=== PATIENT | female | born 1975 | race Caucasian/White ===

== ENCOUNTER → 2017-02-03 | Outpatient (CLI) | payer BC ==
[~2017-02-03] MED LIST: BUPR-86 PO; DEXL60CA PO; PHEN37.53 PO
== END ==
LOC: STAR 09:11
PROVIDERS: ATTEND Thoracic Surgery (Cardiothoracic Vascular Surgery)
DX: Z02.9 Encounter for administrative examinations, unspecified (principal)

== ENCOUNTER 2017-02-15 07:57 | Observation (INO) | payer BC ==
[~2017-02-15] VITALS: Ht 167.6 cm; Wt 80.2 kg
[~2017-02-15 07:57] MED LIST changes: +BUPIVACAINE/PF-EPI 0.5% 1:200K ONE
[2017-02-15] MEDS ORDERED: LACTATED RINGERS 1,000 ML IV SCH (08:46)
[2017-02-15 08:47] VITALS: BP 127/75
[2017-02-15 09:03] LABS: HCG UR OBC PASS
[2017-02-15] MEDS ORDERED: SCOPOLAMINE PATCH, 1.5MG PATCH.TD72 TD ONE (10:41)
[2017-02-15] MEDS ORDERED: HYDROmorphone 1 MG/ML, 1ML ONE ×2 (10:45→13:26)
[2017-02-15] MEDS ORDERED: FENTANYL PF 100 MCG/2ML ONE ×2 (10:45→12:15)
[2017-02-15] MEDS ORDERED: ONDANSETRON 2MG/ML, 2ML IVPush PRN ×2 (11:30→12:00)
[2017-02-15] MEDS ORDERED: hydrALAzine 20 MG/ML, 1ML IV PRN ×2 (11:30→12:00)
[2017-02-15] MEDS ORDERED: OXYcodone 5 MG/5 ML ORAL.SOL UDC PO PRN (11:30)
[2017-02-15] MEDS ORDERED: LABETALOL 5MG/ML, 20ML IV PRN (11:30)
[2017-02-15] MEDS ORDERED: PROMETHAZINE 25 MG/ML, 1ML IV PRN (11:30)
[2017-02-15] MEDS ORDERED: MIDAZOLAM 1 MG/ML, 2ML IV PRN (11:30)
[2017-02-15] MEDS ORDERED: MEPERIDINE/PF 25MG/0.5ML IVPush PRN (11:30)
[2017-02-15] MEDS ORDERED: DIPHENHYDRAMINE 50 MG/ML, 1ML IV PRN (12:00)
[2017-02-15] MEDS ORDERED: PROMETHAZINE 12.5 MG SUPP PR PRN (12:00)
[2017-02-15] MEDS ORDERED: ENALAPRILAT 1.25 MG/ML, 2ML IV PRN (12:00)
[2017-02-15] MEDS ORDERED: LORazepam 2 MG/ML, 1ML IV PRN (12:00)
[2017-02-15] MEDS ORDERED: HYDROcodone/APAP 7.5-325MG/15ML UDC ONE (12:15)
[2017-02-15] MEDS: HYDROcodone/APAP 7.5-325MG/15ML UDC PO PRN ×2 (12:17→21:14)
[2017-02-15] MEDS: FENTANYL PF 100 MCG/2ML IV PRN ×2 (12:19→12:45)
[2017-02-15] MEDS: HYDROmorphone 1 MG/ML, 1ML IV PRN ×2 (13:28→13:36)
[2017-02-15] MEDS: morphine SULFATE 10 MG/ML, 1ML IV PRN ×5 (14:04→23:48)
[2017-02-15] MEDS: LACTATED RINGERS 1,000 ML IV SCH ×2 (14:05→21:14)
[2017-02-15] MEDS: FAMOTIDINE 20 MG/2 ML IV SCH (14:38)
[2017-02-15 14:42] VITALS: BP 116/73
[2017-02-15] MEDS ORDERED: ONDANSETRON 2MG/ML, 2ML ONE (16:26)
[2017-02-15] MEDS ORDERED: SUCCINYLCHOLINE 20 MG/ML, 10ML ONE (16:26)
[2017-02-15] MEDS ORDERED: KETOROLAC 30 MG/1 ML ONE (16:26)
[2017-02-15] MEDS ORDERED: NEOSTIGMINE 1 MG/ML, 10ML ONE (16:26)
[2017-02-15] MEDS ORDERED: ROCURONIUM 10 MG/ML ONE (16:26)
[2017-02-15] MEDS ORDERED: DEXAMETHASONE 4 MG/ML, 1ML ONE (16:26)
[2017-02-15] MEDS ORDERED: PROPOFOL 10 MG/ML, 20ML ONE (16:26)
[2017-02-15] MEDS ORDERED: GLYCOPYRROLATE 0.2MG/1ML ONE (16:26)
[2017-02-15] MEDS ORDERED: CEFAZOLIN 1,000 MG ONE (16:26)
[2017-02-15] MEDS: KETOROLAC 30 MG/1 ML IV PRN ×2 (16:55→23:47)
[2017-02-15] MEDS: CEFAZOLIN PMX 2GM/50ML 50 ML IVPB SCH (17:35)
[2017-02-15 18:32] VITALS: BP 112/67
[2017-02-15] MEDS: PROMETHAZINE 25 MG/ML, 1ML IM PRN (18:38)
[2017-02-16 02:18] VITALS: BP 113/69
[2017-02-16] MEDS: FAMOTIDINE 20 MG/2 ML IV SCH (02:45)
[2017-02-16] MEDS: CEFAZOLIN PMX 2GM/50ML 50 ML IVPB SCH (02:46)
[2017-02-16] MEDS: HYDROcodone/APAP 7.5-325MG/15ML UDC PO PRN ×3 (02:46→10:24)
[2017-02-16] MEDS: PROMETHAZINE 25 MG/ML, 1ML IM PRN (04:33)
[2017-02-16] MEDS: LACTATED RINGERS 1,000 ML IV SCH (04:41)
[2017-02-16] MEDS: KETOROLAC 30 MG/1 ML IV PRN (05:54)
[2017-02-16 08:01] VITALS: BP 103/60
[2017-02-16] MEDS ORDERED: ENOXAPARIN 40 MG/0.4 ML SQ SCH (09:00)
[2017-02-16] MEDS ORDERED: PROM25SU34 RC (10:36)
[2017-02-16] MEDS ORDERED: HYDR473S51 PO (10:41)
== END 2017-02-16 10:51 | disposition home or self-care (01) ==
LOC: OUT 07:57 → ORIP 11:54 → 4NOR 13:58 → DCLOUNGE 02-16 10:34
PROVIDERS: ADMIT Thoracic Surgery (Cardiothoracic Vascular Surgery); ATTEND Thoracic Surgery (Cardiothoracic Vascular Surgery)
DX: K21.9 Gastro-esophageal reflux disease without esophagitis (principal); K44.9 Diaphragmatic hernia without obstruction or gangrene; T81.89XA Other complications of procedures, not elsewhere classified, initial encounter; Y83.8 Other surgical procedures as the cause of abnormal reaction of the patient, or of later complication, without mention of misadventure at the time of the procedure
CPT/HCPCS: 43280; 81025; 96365; 96372; 96375; 96376; G0378; J0330; J0690; J1100; J1170; J1650; J1885; J2270; J2405; J2550; J2704; J2710; J3010; J7120; J3490; S0028